=== PATIENT | female | born 1985 | race Caucasian/White ===

== ENCOUNTER 2017-07-11 19:36 | Emergency (ER) | payer SELFPAY ==
[2017-07-11 19:59] VITALS: BP 152/71
[2017-07-11] MEDS ORDERED: MOTRIN ONE (20:14)
[2017-07-11] MEDS ORDERED: ZOFRAN IM ONE (20:26)
[2017-07-11] MEDS ORDERED: ZOFRAN ONE (20:28)
[2017-07-11] MEDS ORDERED: MOTRIN PO ONE (20:33)
[2017-07-11 20:50] LABS: Basophils % (Auto) 0.3 % (0.0-1.8); Eosinophils % (Auto) 0.4 % (0.0-4.3); Hematocrit 30.6 % (30.3-42.9); Hemoglobin 9.8 gm/dl (10.1-14.3); Lymphocytes % (Auto) 11.4 % (13.4-35.0); Mean Corpuscular HGB Conc 32 % (30-34); Mean Corpuscular Volume 79 fl (79-97); Monocytes # (Auto) 0.4 K/mm3 (0.0-0.8); Monocytes % (Auto) 4.8 % (0.0-7.3); Platelet Count 216 K/mm3 (140-440); Red Blood Count 3.87 M/mm3 (3.65-5.03); Red Cell Distribution Width 17.2 % (13.2-15.2)
[2017-07-11 20:53] LABS: Mean Corpuscular Hemoglobin 25 pg (28-32)
== END 2017-07-11 21:00 | disposition left against medical advice (07) ==
LOC: ED 19:36
DX: N93.9 Abnormal uterine and vaginal bleeding, unspecified (principal); Z53.21 Procedure and treatment not carried out due to patient leaving prior to being seen by health care provider
CPT/HCPCS: 36415; 84702; 85025; 86850; 86900; 86901; J2405